=== PATIENT | female | born 1945 | race Caucasian/White ===

== ENCOUNTER → 2017-06-24 | Outpatient (CLI) | payer MEDICARE, OTHER ==
[~2017-06-24] MED LIST: ASPI325T33 PO; ASPI81TA23 PO; ATOR10TA15 PO; CHOL10008 PO; COMMODE 3-IN-11 MIS; COQ150CA PO; DILT360C12 PO; DIPH25CA PO; DOCU1CAP66 PO; HYDR-3580 PO; HYDR25TA5 PO; RANI150T PO; WALKER WHEELS/F1 MIS; [UNRECOGNIZED DRUG - CODE] PO
[2017-06-24 09:40] LABS: BACTERIA, URINE RARE /hpf; BLOOD, URINE NEG (NEG); GLUCOSE,URINE NEG (NEG); HYALINE CAST, URINE 1 /lpf (RARE); KETONE, URINE NEG (NEG); MUCUS URINE FEW /lpf (OCC); NITRITE,URINE NEG (NEG); PH, URINE 7.5 (5.0-8.5); URINE COLOR YELLOW (YELLW/STRAW)
[2017-06-24 09:45] LABS: APTT (PATIENT) 26.3 SEC (24.3-30.1); INTERNATIONAL NORMALIZED RATIO 0.9 RATIO; PROTHROMBIN TIME - PATIENT 10.3 SEC (9.8-11.6)
[2017-06-24 09:46] LABS: COMMENT (UR) CATH-CULTURE IND; CULTURE IF INDICATED CATH CULTURE IND
[2017-06-24 09:50] LABS: AUTOMATED NEUTROPHIL # 3.6 TH/MM3 (1.8-7.7); BASOPHIL % 0.6 % (0.0-2.0); EOSINOPHIL # 0.3 TH/MM3 (0-0.4); EOSINOPHIL % 5.3 % (0.0-4.0); HEMATOCRIT 40.6 % (35.0-46.0); HEMO FLAGS DIFF FINAL; LYMPHOCYTE # 1.6 TH/MM3 (1.0-4.8); MEAN CORPUSCULAR HEMOGLOBIN 30.8 PG (27.0-34.0); MEAN CORPUSCULAR HGB CONC 34.2 % (32.0-36.0); MONO % 9.3 % (0.0-8.0); NEUT % 58.8 % (16.0-70.0); PLATELET COUNT 236 TH/MM3 (150-450); RED BLOOD COUNT 4.51 MIL/MM3 (4.00-5.30); RED CELL DISTRIBUTION WIDTH 15.1 % (11.6-17.2); WHITE BLOOD COUNT 6.1 TH/MM3 (4.0-11.0)
[2017-06-24 10:03] LABS: BICARBONATE 32.3 MEQ/L (21.0-32.0); POTASSIUM 4.2 MEQ/L (3.5-5.1)
--- NOTE | 2017-06-25 15:18 | EKG ---
Date Performed: 06/24/2017 Time Performed: 08:29:38 PTAGE: 72 years EKG: Sinus rhythm NONSPECIFIC T-WAVE ABNORMALITY BORDERLINE ECG NO PREVIOUS TRACING DOCTOR: Torrie Ren Interpretating Date/Time 06/25/2017 15:17:35
== END ==
LOC: CPRE 08:05
PROVIDERS: ATTEND Orthopaedic Surgery Orthopaedic Surgery of the Spine
DX: Z01.812 Encounter for preprocedural laboratory examination (principal); Z01.810 Encounter for preprocedural cardiovascular examination; R82.99 Other abnormal findings in urine; Z79.01 Long term (current) use of anticoagulants
CPT/HCPCS: 36415; 80048; 81001; 85025; 85610; 85730; 87086; 93005

== ENCOUNTER 2017-07-04 06:06 | Inpatient (IN) | payer MEDICARE, OTHER ==
[~2017-07-04] VITALS: Ht 165.1 cm; Wt 76.5 kg
[~2017-07-04 06:06] MED LIST changes: -ASPI325T33 PO; -COMMODE 3-IN-11 MIS; -HYDR-3580 PO; -WALKER WHEELS/F1 MIS
[2017-07-04] MEDS ORDERED: GENTAMICIN SULFATE 80 MG/2 ML VIAL ONE (07:11)
[2017-07-04] MEDS ORDERED: CHLORHEXIDINE GLUCONATE 2 % 1 PACK (2 CLOTHS) TOPICAL PRN (07:30)
[2017-07-04] MEDS ORDERED: METOPROLOL TARTRATE 25 MG TAB PO PRN (07:30)
[2017-07-04] MEDS ORDERED: ceFAZolin 2 GM PREMIX 50 ML IV SCH (07:30)
[2017-07-04] MEDS ORDERED: SODIUM CHLORID 0.9% 500 ML IV PRN (07:30)
[2017-07-04] MEDS ORDERED: LACTATED RINGER'S 1000 ML IV PRN (07:30)
[2017-07-04] MEDS ORDERED: VANCOMYCIN 1000 MG/NS 250 ML (for <70 kg) IV SCH ×2 (07:30)
[2017-07-04] MEDS ORDERED: INSULIN HUMAN REGULAR 1,000 UNITS/10 ML VIAL SQ PRN (07:30)
[2017-07-04] MEDS ORDERED: POVIDONE IODINE 5% (ANTISEPSIS KIT) 4 APPLICATIONS EACH NARE PRN (07:30)
[2017-07-04] MEDS ORDERED: POVIDONE IODINE 7.5% SCRUB 118 ML BOTTLE TOPICAL SCH (07:30)
[2017-07-04] MEDS ORDERED: SODIUM CHLORIDE 0.9% IV SCH (08:00)
[2017-07-04] MEDS ORDERED: EXPAREL PERI-ARTICULAR INJECTION (TOTAL VOL. 60 ML) P-ARTICULR SCH ×2 (08:00)
[2017-07-04] MEDS ORDERED: TRANEXAMIC ACID IV SCH (08:00)
[2017-07-04] MEDS ORDERED: ACETAMINOPHEN 1000 MG/100 ML 100 ML IV ONE (08:09)
[2017-07-04] MEDS ORDERED: diphenhydrAMINE HCL 25 MG CAP PO PRN (10:30)
[2017-07-04] MEDS ORDERED: MISCELLANEOUS PHARMACY INFORMATION XX ONE (10:30)
[2017-07-04] MEDS ORDERED: NALOXONE HCL 0.4 MG/ML AMP IV PUSH PRN (10:30)
[2017-07-04] MEDS ORDERED: MORPHINE SULFATE 30 MG/30 ML PCA IV SCH (10:30)
[2017-07-04] MEDS ORDERED: MORPHINE SULFATE 8 MG/ML INJ IM PRN (10:30)
[2017-07-04] MEDS ORDERED: Post-op Orders (for Pharmacy) MISC XX ONE (10:30)
[2017-07-04] MEDS ORDERED: MISCELLANEOUS NURSING INFORMATION XX PRN (10:30)
[2017-07-04] MEDS ORDERED: ACETAMINOPHEN/HYDROcodone 325 MG/7.5 MG TAB PO PRN (10:30)
--- NOTE | 2017-07-04 10:35 | PD.OP ---
cc: Jose Ross MD Operative Report Date of Surgery: Jul 04, 2017 Preoperative Diagnosis: Osteoarthritis left hip, severe Postoperative Diagnosis: Same Procedure: Left total hip replacement arthroplasty, direct anterior exposure Anesthesia: Gen. Surgeon: Jose Ross Senior Administrative Services Officer(s): OMAR Joe Operation and Findings: EBL: 400cc INDICATION: This patient presents with significant hip pain related to severe osteoarthritis of the left hip. This patient has had a previous right total hip replacement arthroplasty elsewhere and has done well.. Despite extensive conservative care this patient continues to be painful and now presents for surgical treatment. NOTE: Danya Joe PA-C was present for the entire surgical procedure as my registered dental assistant rda. In my medical opinion her skill and care was necessary for the proper management of this patient. COMPONENTS: COMPANY: [employer] CUP: [place], 54, 100 series, gription surface LINER: Altrx 36, neutral STEM: Size 12, high offset, hydroxyapatite-coated HEAD: Metal, 36 mm, +1.5, 12/14 taper PROCEDURE: This patient was brought to the operating room and anesthetized in the supine position and positioned on the fracture table with both legs held extended. The left hip and leg was scrubbed with alcohol followed by Hibiclens followed by ChloraPrep and draped sterilely. Antibiotics were given within routine time window and a timeout was done. A 4 inch incision was made starting 2 cm distal and 2 cm lateral to the anterior superior iliac spine. The fascia herlinda was opened longitudinally. The interval between the fascia herlinda and the rectus was opened down to the capsule of the hip joint. Retractors were positioned allowing good visualization of the capsule. This was opened longitudinally and flaps were created. Stay sutures were utilized. Exposure was excellent. The neck was cut at the proper location using fluoroscopy as a guide. The head was removed. Deep retractors were positioned allowing good visualization of the acetabulum. Acetabulum was deepened down to the floor starting with a proper size reamer and reaming up to 53 mm. A trial was utilized. Fluoroscopy was used to check position and confirmed satisfactory alignment. The rim was reamed with a 54 mm reamer and the final cup was positioned in approximately 20 of anteversion and 40-45 of abduction. Position was satisfactory. A single hole eliminator was positioned followed by the final liner. The lifting hook was utilized. The leg was dropped to the floor, maximally externally rotated and brought across the midline. Retractors were positioned. A box osteotome was utilized followed by progressive broaching to the proper stem size. Trial reduction showed excellent alignment and fit. With 60 of external rotation the leg was dropped to the floor without evidence of anterior subluxation. The wound was irrigated. The final stem was inserted and was found to be very stable. The final reduction using the final head. Stability was as previously noted. Intraoperative x-rays were taken. The wound was irrigated copiously. Hemostasis was controlled. Local anesthesia was utilized. The capsule was repaired with #2 Tycron sutures. The fascia herlinda was repaired with running 0 PDS on a loop. Subcutaneous tissue was approximated with 2-0 Vicryl and skin with running intradermal 3-0 Vicryl followed by Steri-Strips. A sterile dressing was applied. The patient was awakened and taken to the recovery room in satisfactory condition. FINDINGS: There was severe osteoarthritis of the left hip. 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 There was no complication Jose Ross MD Jul 04, 2017 10:35
[2017-07-04] MEDS ORDERED: ASPI325T33 PO (10:37)
[2017-07-04] MEDS ORDERED: HYDR-3580 PO (10:37)
[2017-07-04] MEDS ORDERED: DO NOT ADM ANY ANTICOAGULANT DRUGS PRN (10:51)
[2017-07-04] MEDS ORDERED: *morphine SULFATE 8 MG/ML PERIprocedure ONLY ONE (10:59)
[2017-07-04] MEDS: LACTATED RINGER'S 1000 ML INJ 1,000 ML IV SCH ×2 (11:34→21:44)
[2017-07-04] MEDS ORDERED: *ONDANSETRON 4 MG VIAL PERIprocedural Use ONLY ONE (13:38)
[2017-07-04] MEDS: PCA - TOTAL MG MORPHINE DELIVERED PER SHIFT SCH ×2 (14:00→21:52)
[2017-07-04 14:30] VITALS: BP 127/62; PULSE 65; RESP 19; TEMP 96.3; O2SAT 100
--- NOTE | 2017-07-04 16:00 | RADRPT ---
EXAM DATE/TIME: 07/04/2017 08:51 [facility] COMPARISON: No previous studies available for comparison. INDICATIONS : Left total anterior hip arthroplasty. OR. MEDICAL HISTORY : None. SURGICAL HISTORY : None. ENCOUNTER: Initial ACUITY: 1 day PAIN SCORE: Non-responsive. LOCATION: Left hip FINDINGS: Examination of the hip demonstrates total hip arthroplasty in satisfactory position. The alignment is anatomic. CONCLUSION: Post surgical changes as above. Nathan Gray MD on July 04, 2017 at 15:58 Board Certified Radiologist. This report was verified electronically.
[2017-07-04 20:54] VITALS: BP 154/71; PULSE 76; RESP 18; TEMP 97; O2SAT 98
[2017-07-04 21:10] VITALS: O2SAT 96
[2017-07-04] MEDS: MAGNESIUM HYDROXIDE SUSP 30 ML CUP PO SCH (21:42)
[2017-07-04] MEDS: ONDANSETRON HCL 4 MG/2 ML VIAL IV PUSH PRN (21:42)
[2017-07-04] MEDS: SENNOSIDES 8.6 MG TAB PO SCH (21:42)
[2017-07-04] MEDS: ATORVASTATIN 10 MG TAB PO SCH (21:43)
[2017-07-04] MEDS: ASPIRIN EC 325 MG TABEC PO SCH (21:43)
[2017-07-04] MEDS: FAMOTIDINE 20 MG TAB PO SCH (21:43)
[2017-07-04] MEDS: ACETAMINOPHEN/HYDROcodone 325 MG/7.5 MG TAB PO PRN (22:03)
[2017-07-05] VITALS: BP 143/67; PULSE 80; RESP 16; TEMP 96.2; O2SAT 95
[2017-07-05 04:00] VITALS: BP 149/68; PULSE 85; RESP 18; TEMP 99.4; O2SAT 92
[2017-07-05] MEDS: ONDANSETRON HCL 4 MG/2 ML VIAL IV PUSH PRN ×2 (04:37→11:13)
[2017-07-05] MEDS: PCA - TOTAL MG MORPHINE DELIVERED PER SHIFT SCH ×3 (06:00→21:42)
[2017-07-05 07:00] LABS: HEMATOCRIT 31.7 % (35.0-46.0); REVIEW FLAG FINAL
[2017-07-05 08:00] VITALS: BP 130/64; PULSE 72; RESP 16; TEMP 98.8; O2SAT 95
[2017-07-05] MEDS ORDERED: COMMODE 3-IN-11 MIS (08:09)
[2017-07-05] MEDS ORDERED: WALKER WHEELS/F1 MIS (08:09)
--- NOTE | 2017-07-05 08:10 | HHI.DCPOC ---
Discharge Care Plan Diagnosis: (1) Osteoarthritis of left hip Your Health Problems Are: Difficulty with ADL Incision/Drains Inflammation Swelling Goals to Promote Your Health * To prevent worsening of your condition and complications * To maintain your health at the optimal level Directions to Meet Your Goals Take your medications as prescribed Follow your dietary instruction Follow activity as directed Keep your appointments as scheduled Take your immunizations and boosters as scheduled If your symptoms worsen call your PCP, if no PCP go to Urgent Care Center or Emergency Room Smoking is Dangerous to Your Health. Avoid second hand smoke Call the 24-hour hour crisis hotline for domestic abuse at Tracy Fitzgerald Jul 05, 2017 08:10
--- NOTE | 2017-07-05 08:11 | HHI.FF ---
Face to Face Verification Diagnosis: (1) Osteoarthritis of left hip Physical Therapy Gait training, Safety evaluation, Transfer training, bed to chair Hip: Total hip, Protocol: Left, Progress to weight bearing Right LE Weight Bearing: WB as tolerated Additional Instructions PT 4x/week for 2 weeks. R DEMOND, anterior protocol. WBAT RLE. Walker as needed. LE strengthening. Nursing RN Days per Week: 2 x Week(s): 1 Dressing Changes: Do not change dressing Additional Instructions Vitals assessment, dressing assessment. Do not change dressing unless saturated. Keep sealed until follow up appt. I have seen patient Agueda Castañeda on 07/05/17. My clinical findings support the need for the requested home health care services because: Limited ability to care for self High risk of falls I certify that my clinical findings support that this patient is homebound because: Post-op weakness Unsteady gait/balance Tracy Fitzgerald Jul 05, 2017 08:11
--- NOTE | 2017-07-05 08:12 | HHI.DS ---
Discharge Summary Admission Date Jul 04, 2017 at 06:06 Discharge Date: Jul 06, 2017 Admitting Diagnosis see below Diagnosis: (1) Osteoarthritis of left hip Diagnosis: Principal ICD Codes: M16.12 - Unilateral primary osteoarthritis, left hip Procedures Left total hip arthroplasty, direct anterior approach Brief History This is a 72 year old female patient CBC/BMP: 07/05/17 0625 Significant Findings Laboratory Tests Test 07/05/17 06:25 Hemoglobin 10.8 GM/DL (11.6-15.3) Hematocrit 31.7 % (35.0-46.0) Pt Condition on Discharge: Stable Discharge Disposition: Disch w/ Home Health Serv Discharge Instructions Diet Instructions: As Tolerated, No Restrictions, High Fiber Diet Activities You Can Perform: Weight Bearing as Pamela Activities to Avoid: Strenuous Activity Additional Activity Instruc.: DEMOND procotol New Medications: Aspirin DR (Aspirin EC) 325 Mg Tabdr 325 MG PO BID for Prevent Blood Clot, #50 TAB 0 Refills Commode 3-in-1 (Commode 3-in-1) 1 Mis Mis EA .ROUTE DIRECTED, #1 0 Refills Walker with Front Wheels (Walker with Front Wheels) 1 Mis Mis EA .ROUTE DIRECTED, #1 0 Refills Hydrocodone/Acetaminophen (Hydrocodone-Acetamin 7.5-325) 7.5 Mg-325 Mg Tablet 1 TAB PO Q4H PRN for PAIN, #50 TAB Continued Medications: Aspirin DR (Aspirin EC) 81 Mg Tabdr 81 MG PO HS, TAB 0 Refills Atorvastatin (Atorvastatin) 10 Mg Tab 10 MG PO HS for Cholesterol Management, #30 TAB 0 Refills Cetirizine HCl (Aller-Sravanthi) 10 Mg Tablet 1 CAP PO DAILY Cholecalciferol (Vitamin D3) 1,000 Unit Cap 1000 UNITS PO DAILY for Nutritional Supplement, #1 BOTTLE 0 Refills Coenzyme Q10 (Ubidecarenone) (Coq10) 50 Mg Cap 100 MG PO DAILY Diltiazem CD 24 HR (Diltiazem CD 24 HR) 360 Mg Capcr 360 MG PO DAILY, #30 CAP 0 Refills Diphenhydramine (Diphenhydramine) 25 Mg Cap 25 MG PO HS PRN for INSOMNIA, CAP 0 Refills Docusate Sodium (Stool Softener) 100 Mg Cap 1 CAP PO DAILY PRN for CONSTIPATION Hydrochlorothiazide (Hydrochlorothiazide) 25 Mg Tab 25 MG PO DAILY, #30 TAB 0 Refills Ranitidine (Ranitidine) 150 Mg Tab 150 MG PO BID for Heartburn Management, #60 TAB 0 Refills Tracy Fitzgerald Jul 05, 2017 08:12
--- NOTE | 2017-07-05 08:16 | PD.ORT.PN ---
Subjective Subjective Remarks Moderate left hip pain. Difficulty lifting left leg. Has not walked yet. No new radiating pain past knee. Denies CP or SOB. Many questions. Somewhat anxious. Objective Vitals Vital Signs Date Time Temp Pulse Resp B/P (MAP) Pulse Ox O2 Delivery O2 Flow Rate FiO2 07/05/17 06:00 16 07/05/17 04:00 99.4 85 18 149/68 (95) 92 07/05/17 00:00 96.2 80 16 143/67 (92) 95 07/04/17 23:38 Nasal Cannula 2.00 07/04/17 23:15 17 07/04/17 21:52 17 07/04/17 21:10 96 Nasal Cannula 2.00 07/04/17 20:54 97.0 76 18 154/71 (98) 98 07/04/17 14:30 96.3 65 19 127/62 (83) 100 07/04/17 13:45 98.2 67 16 131/67 (88) 99 Nasal Cannula 2 07/04/17 13:00 58 16 130/60 (83) 99 Nasal Cannula 2 07/04/17 12:30 54 16 124/60 (81) 97 Nasal Cannula 2 07/04/17 12:00 52 17 126/67 (86) 97 Nasal Cannula 2 07/04/17 11:45 53 15 120/68 (85) 96 Nasal Cannula 2 07/04/17 11:34 15 07/04/17 11:30 53 18 119/68 (85) 96 Nasal Cannula 2 07/04/17 11:15 52 15 119/67 (84) 96 Nasal Cannula 2 07/04/17 11:00 52 15 131/59 (83) 97 Nasal Cannula 2 07/04/17 10:55 97.2 58 15 125/73 (90) 94 Nasal Cannula 2 I/O 07/04/17 07/04/17 07/04/17 07/05/17 07/05/17 07/05/17 07:00 15:00 23:00 07:00 15:00 23:00 Intake Total 2250 ml 1580 ml 175 ml Output Total 675 ml 850 ml 550 ml Balance 1575 ml 730 ml -375 ml Intake Oral 480 ml 75 ml IV Total 2000 ml 1100 ml 100 ml Other 250 ml Output Urine Total 475 ml 850 ml 550 ml Estimated Blood Loss 200 ml # Bowel Movements 0 0 Result Diagram: 07/05/17 0625 Procedures Left total hip arthroplasty, direct anterior approach Objective Remarks Sitting up in bed With NAD but anxious VSS LLE Hip dressing c/d/i, very little SS drainage, mild swelling, no erythema +motor at, +sens, +nvi neg homans Assessment & Plan Ortho Post Op Day #: 1 Problem List: (1) Osteoarthritis of left hip ICD Codes: M16.12 - Unilateral primary osteoarthritis, left hip Qualifiers: Qualified Codes: M16.12 - Unilateral primary osteoarthritis, left hip Assessment and Plan pod#1 s/p L DEMOND, anterior D/C [employer] - change to po pain meds Anti-emetics as needed for nausea. PT - WBAT LLE. Encouraged activity as pt is nervous about walking. ASA 325mg 2 tabs daily. Hold dressing changes unless saturated. Mild postop anemia. D/C planning, [facility]. DME and F2F written. Tracy Fitzgerald Jul 05, 2017 08:16
[2017-07-05] MEDS: CETIRIZINE HCL 10 MG TAB PO SCH (08:55)
[2017-07-05] MEDS: FAMOTIDINE 20 MG TAB PO SCH ×2 (08:55→21:37)
[2017-07-05] MEDS: HYDROCHLOROTHIAZIDE 25 MG TAB PO SCH (08:55)
[2017-07-05] MEDS: DILTIAZEM-CD 180 MG CAP ER PO SCH (08:55)
[2017-07-05] MEDS: CHOLECALCIFEROL (VIT D3) 1000 UNIT TAB PO SCH (08:55)
[2017-07-05] MEDS: ASPIRIN EC 325 MG TABEC PO SCH ×2 (08:56→21:37)
[2017-07-05] MEDS: MAGNESIUM HYDROXIDE SUSP 30 ML CUP PO SCH ×2 (08:57→21:38)
[2017-07-05] MEDS: RIVAROXABAN 10 MG TAB PO SCH ×2 (10:00→11:12)
[2017-07-05] MEDS: LACTATED RINGER'S 1000 ML INJ 1,000 ML IV SCH ×2 (11:24→21:46)
[2017-07-05 12:00] VITALS: BP 137/73; PULSE 80; RESP 18; TEMP 97.8; O2SAT 95
[2017-07-05 16:00] VITALS: BP 125/54; PULSE 63; RESP 18; TEMP 99; O2SAT 95
[2017-07-05 18:07] VITALS: O2SAT 95
[2017-07-05] MEDS: SENNOSIDES 8.6 MG TAB PO SCH (21:37)
[2017-07-05] MEDS: ATORVASTATIN 10 MG TAB PO SCH (21:38)
[2017-07-05] MEDS: ACETAMINOPHEN/HYDROcodone 325 MG/7.5 MG TAB PO PRN (21:38)
[2017-07-06] VITALS: BP 110/54; PULSE 81; RESP 18; TEMP 99.4; O2SAT 95
[2017-07-06] MEDS: PCA - TOTAL MG MORPHINE DELIVERED PER SHIFT SCH (06:00)
--- NOTE | 2017-07-06 07:33 | PD.ORT.PN ---
Subjective Subjective Remarks pt slowly improving with her left hip Objective Vitals Vital Signs Date Time Temp Pulse Resp B/P (MAP) Pulse Ox O2 Delivery O2 Flow Rate FiO2 07/06/17 00:00 99.4 81 18 110/54 (72) 95 07/05/17 23:41 Room Air 07/05/17 22:17 17 07/05/17 21:42 17 07/05/17 18:07 95 Nasal Cannula 2.00 07/05/17 16:00 99.0 63 18 125/54 (77) 95 07/05/17 12:00 97.8 80 18 137/73 (94) 95 07/05/17 08:00 98.8 72 16 130/64 (86) 95 I/O 07/05/17 07/05/17 07/05/17 07/06/17 07/06/17 07/06/17 07:00 15:00 23:00 07:00 15:00 23:00 Intake Total 175 ml 600 ml 480 ml Output Total 550 ml Balance -375 ml 600 ml 480 ml Intake Oral 75 ml 600 ml 480 ml IV Total 100 ml Output Urine Total 550 ml # Voids 2 2 # Bowel Movements 0 0 0 Result Diagram: 07/05/17 0625 Procedures Left total hip arthroplasty, direct anterior approach Objective Remarks seen by Dr. Nitesh Ross NAD VSS LLE Hip dressing c/d/i, mild swelling, no erythema +motor at, +sens, +nvi neg homans Assessment & Plan Problem List: (1) Osteoarthritis of left hip ICD Codes: M16.12 - Unilateral primary osteoarthritis, left hip Qualifiers: Qualified Codes: M16.12 - Unilateral primary osteoarthritis, left hip Assessment and Plan pod#2 s/p L DEMOND, anterior Anti-emetics as needed for nausea. PT - WBAT LLE. ASA 325mg 2 tabs daily. Hold dressing changes unless saturated. Mild postop anemia. discharge home today, orthopedically stable DME and F2F written. Julieta Hannah Jul 06, 2017 07:33
[2017-07-06 08:00] VITALS: BP 133/55; PULSE 80; RESP 18; TEMP 98.7; O2SAT 96
[2017-07-06] MEDS: FAMOTIDINE 20 MG TAB PO SCH (09:35)
[2017-07-06] MEDS: CHOLECALCIFEROL (VIT D3) 1000 UNIT TAB PO SCH (09:36)
[2017-07-06] MEDS: ASPIRIN EC 325 MG TABEC PO SCH (09:36)
[2017-07-06] MEDS: CETIRIZINE HCL 10 MG TAB PO SCH (09:36)
[2017-07-06] MEDS: DILTIAZEM-CD 180 MG CAP ER PO SCH (09:36)
[2017-07-06] MEDS: HYDROCHLOROTHIAZIDE 25 MG TAB PO SCH (09:36)
[2017-07-06] MEDS: MAGNESIUM HYDROXIDE SUSP 30 ML CUP PO SCH (09:37)
[2017-07-06 12:00] VITALS: BP 107/49; PULSE 79; RESP 18; TEMP 99; O2SAT 93
== END 2017-07-06 15:08 | disposition home health service (06) | DRG 470 ==
LOC: HSDI 06:06 → EDUNIT# 11:00 → N06B 14:04
PROVIDERS: ADMIT Orthopaedic Surgery Orthopaedic Surgery of the Spine; ATTEND Orthopaedic Surgery Orthopaedic Surgery of the Spine
PROC: 0SBB0ZZ Excision of Left Hip Joint, Open Approach (ICD-10-PCS; 2017-07-04)
PROC: 0SRB02A Replacement of Left Hip Joint with Metal on Polyethylene Synthetic Substitute, Uncemented, Open Approach (ICD-10-PCS; principal; 2017-07-04 08:30)
DX: M16.12 Unilateral primary osteoarthritis, left hip (principal); D64.9 Anemia, unspecified; I10 Essential (primary) hypertension; M67.452 Ganglion, left hip; K21.9 Gastro-esophageal reflux disease without esophagitis
CPT/HCPCS: 73502; 76000; 85014; 85018; 86077; 86850; 86870; 86900; 86901; 86902; 86920; 86922; 94150; C1776; C9290; J0131; J0690; J1580; J2270; J2405; J3370; J7050; J7120